=== PATIENT | female | born 2000 | race Caucasian/White ===

== ENCOUNTER 2021-03-29 09:20 | Emergency (ER) | payer BC, OTHER ==
[~2021-03-29] VITALS: Ht 167.6 cm; Wt 102.3 kg
[~2021-03-29 09:20] MED LIST: ALBU8.5H8 IH
[2021-03-29 09:30] VITALS: BP 154/79
== END 2021-03-29 11:00 | disposition home or self-care (01) ==
LOC: ER 09:21
DX: S42.001A Fracture of unspecified part of right clavicle, initial encounter for closed fracture (principal); J45.909 Unspecified asthma, uncomplicated; Z91.010 Allergy to peanuts; Z79.899 Other long term (current) drug therapy; V29.9XXA Motorcycle rider (driver) (passenger) injured in unspecified traffic accident, initial encounter; Y93.89 Activity, other specified; Y92.488 Other paved roadways as the place of occurrence of the external cause; Y99.8 Other external cause status
CPT/HCPCS: 29105; 73030; 99283